=== PATIENT | male | born 1965 | race Caucasian/White ===

== ENCOUNTER 2020-04-05 08:04 | Outpatient (CLI) | payer BC, SELFPAY ==
[2020-04-05 09:31] LABS: Basophils Percent Auto 0.5 % (0.2-1.2); Eosinophils Absolute Auto 0.1 K/mm3 (0-0.3); Eosinophils Percent Auto 2.3 % (0-4.4); Hematocrit 42.9 % (42.0-52.0); Hemoglobin 14.6 g/dL (14.0-18.0); Immature Granulocyte Absolute 0.02 K/mm3 (0.00-0.031); Immature Granulocyte Percent A 0.3 % (0-0.5); Lymphocytes Absolute Auto 1.93 K/mm3 (0.9-3.2); Lymphocytes Percent Auto 31.4 % (18.3-44.2); Mean Corpuscular Volume 91.1 fl (80-100); Mean Platelet Volume 8.8 fl (7.4-10.4); Monocytes Absolute Auto 0.5 K/mm3 (0.1-0.6); Monocytes Percent Auto 8.8 % (2.6-8.5); Neutrophils Absolute Auto 3.5 K/mm3 (1.3-6.7); Neutrophils Percent Auto 56.7 % (45.5-73.1); Platelet Count Result 235 k/mm3 (150-375); Red Blood Count 4.71 M/mm3 (4.6-6.20); White Blood Count 6.1 K/mm3 (4.5-10.0)
[2020-04-05 09:58] LABS: Albumin Level 4.7 g/dL (3.5-5.1); Estimated Glomerular Filt Rate > 60; Glucose 102 mg/dL (75-110)
[2020-04-05 10:01] LABS: Hemoglobin A1C 5.4 % (<5.7)
[2020-04-05 10:33] LABS: Urine Cotinine NEGATIVE
== END 2020-04-05 08:05 | disposition home or self-care (01) ==
LOC: ANHSURGERY 08:08
PROVIDERS: PCP Internal Medicine Geriatric Medicine; Visit Provider Orthopaedic Surgery
DX: M17.11 Unilateral primary osteoarthritis, right knee (principal); Z51.81 Encounter for therapeutic drug level monitoring; Z79.899 Other long term (current) drug therapy
CPT/HCPCS: 80307; 82040; 82565; 82947; 83036; 85025; 87081

== ENCOUNTER 2020-04-22 00:33 | Outpatient (CLI) | payer BC, SELFPAY ==
[2020-04-22 19:13] LABS: SARS-CoV-2 RNA PCR Negative
== END 2020-04-22 00:34 | disposition home or self-care (01) ==
LOC: ANHCOVIDDT 00:33
PROVIDERS: PCP Internal Medicine Geriatric Medicine; Visit Provider Orthopaedic Surgery
DX: Z01.812 Encounter for preprocedural laboratory examination (principal); Z20.828 Contact with and (suspected) exposure to other viral communicable diseases
CPT/HCPCS: 87635; C9803; U0003

== ENCOUNTER 2020-04-25 01:00 | Day surgery (SDC) | payer BC, SELFPAY ==
[2020-04-05 08:14] VITALS: BMI 36.6
[2020-04-05 09:18] VITALS: BP 169/94; PULSE 61; RESP 16; TEMP 37.1; O2SAT 99
--- NOTE | 2020-04-24 12:16 | WPDANESEPPF ---
Anes - Initial Pre Proc Eval Procedure: Operation Date: 04/25/20 07:30 Proposed Procedures p Right Total Knee Arthroplasty - Dane May MD Date/Time: 04/24/20 12:16 Surgeon: Dane May MD Pre Op Diagnosis: OA Right Knee Patient Data Age: 55 Gender: M Height: 1.91 m Weight: 132.8 kg Last Vital Signs Temp 37.1 C 04/05/20 09:18 Pulse 61 04/05/20 09:18 Resp 16 04/05/20 09:18 BP 169/94 H 04/05/20 09:18 Pulse Ox 99 04/05/20 09:18 Allergies Allergy/AdvReac Type Severity Reaction Status Date / Time No Known Allergies Allergy Verified 04/25/20 06:24 Home Medications Medication Instructions Recorded Confirmed Type oxycodone-acetaminophen 5 mg-325 1 - 2 tablet PO Q6H PRN #30 tablet 04/03/20 04/05/20 Rx mg tablet rosuvastatin 20 mg tablet 20 mg PO DAILY 04/03/20 04/05/20 History cholecalciferol (vitamin D3) 25 mcg PO DAILY 04/05/20 04/05/20 History flaxseed oil 1,000 mg PO DAILY 04/05/20 04/05/20 History glucosamine-chondroitin 2 cap PO DAILY 04/05/20 04/05/20 History lisinopril 20 mg PO QAM 04/05/20 04/05/20 History meloxicam 15 mg PO DAILY 04/05/20 04/05/20 History vitamin B complex 1 tablet PO DAILY 04/05/20 04/05/20 History vitamin E 400 unit PO DAILY 04/05/20 04/05/20 History Patient hx anesthesia problems: none Family hx anesthesia problems: none PMFSH Past Medical History Medical History (Updated 04/24/20 @ 12:17 by Wander Martinez MD) Anxiety Gout HTN (hypertension) Hypercholesterolemia Osteoarthritis Family History Family History Father Diabetes mellitus Hypertension Other Family history of dementia Family history of malignant neoplasm of male breast Social History Social History Smoking packs per day: 1.5 Smoking cigarettes per day: 30.0 Years smoked: 20 Smoking pack-years: 30.00 Smoking status: Former smoker Tobacco type: cigarettes Second hand tobacco smoke exposure: No Smoking end date: 05/19/09 Additional smoking assessment comments: DENIES ANY FORM OF TOBACCO/NICOTINE USE Alcohol intake: current Drinks per week: 18 Living arrangements: with family Spiritual care concerns: No Anes - Eval Final PreProcedure Day of Procedure 04/24/20 12:16 Patient weight: obese Heart: regular rate and rhythm Lungs: clear to auscultation and normal air movement Airway: Mallampati scale class II Neurological: alert and oriented Last oral intake: >/= 8 hours ASA classification: III Emergent: no Anesthetic plan: proceed Anesthesia type and monitoring: general LMA Informed Consent: The patient's anesthetic plan and its attendant risks and benefits were discussed with the patient/family/POA. Questions were solicited and answers provided to the satisfaction of the patient/family/POA.
[2020-04-25] VITALS (12 sets, daily range): BP systolic 140–177; BP diastolic 75–95; PULSE 71–88; RESP 11–18; TEMP 36.4; O2SAT 94–100
--- NOTE | ~2020-04-25 | XR_ITS ---
EXAMINATION: XR knee RT 2V DATE: 04/25/2020 10:23 INDICATION: Total right knee arthroplasty. Postop. TECHNIQUE: 2 views of right knee were obtained. COMPARISON: Right knee radiographs 11/25/2019 FINDINGS: There is a total right knee arthroplasty with patellar resurfacing in near-anatomic alignme nt. No fracture. There is gas in the knee joint and soft tissues, consistent with recent surgery. IMPRESSION: 1. Total right knee arthroplasty in near-anatomic alignment. Reviewed, dictated and finalized at location B. ET ENGINEER
[2020-04-25] MEDS: ACETAMINOPHEN 500 MG TABLET 1000 MG PO (06:17)
[2020-04-25] MEDS: LACTATED RINGERS 1,000 ML 30 ML IV CONT ×2 (06:36→10:03)
[2020-04-25] MEDS: TRANEXAMIC ACID 1,000MG/ISO100 1,000 MG/100 ML BAG 200 MG IVPB (07:02)
--- NOTE | 2020-04-25 07:20 | WPDHPUPDATE1 ---
History and Physical Update Update Date/Time: 04/25/20 07:20 History and Physical has been reviewed, including an updated exam of the patient. There are NO changes in the patient's condition. Risks, benefits, and alternatives have been discussed and questions answered. Patient agrees to proceed with procedure.
[2020-04-25] MEDS: ceFAZolin 3 GM/D5W 100 ML 100 ML IVPB (07:24)
--- NOTE | 2020-04-25 07:26 | WPDANESPNB ---
Anes - Peripheral Nerve Block Date/Time: 04/25/20 07:26 I have discussed with the patient/family/POA the placement of a peripheral nerve block for post-operative pain management, including associated risks, benefits, complications, and side effects. Alternative methods of post-operative analgesia were detailed. Questions were solicited and answers provided to the satisfaction of the patient/family/POA. Time-Out: A pre-procedural Time-Out was completed immediately before starting the procedure and confirmed: Patient Identification, Site, Procedure, Patient Position and the Availability of Requisite Equipment. Clinical Indications: Acute post-operative pain management requested by the operative surgeon. Nerve Block Insertion Note Anes-nerve block: adductor canal right Patient position: supine Skin prep: chlorhexidine Needle: 22 gauge, stimulating, insulated echogenic needle. Needle length: 80 mm Technique: ultrasound Technique comment: in plane Injectate: bupivacaine 0.25% with epi 5 mcg/ml (30cc) Observations: tolerated well Complications: none Procedure start time:: 720 Procedure end time:: 725
[2020-04-25] MEDS: GENTAMICIN BONE CEMENT REFOBACIN 1 EACH TOPICAL (07:57)
[2020-04-25] MEDS: fentaNYL CITRATE INJ (*CRX) 100 MCG/2 ML VIAL 25 MCG IV PUSH ×4 (10:34→11:00)
--- NOTE | 2020-04-25 11:34 | PM.PROC ---
Procedure Note - Detailed Date of procedure: 04/25/20 Pre-op diagnosis: OA Right Knee Post-op diagnosis: same Procedure performed: Total knee arthroplasty, right Description of procedure: Severe persistent pain despite ongoing since conservative care. He had a large varus thrust with attenuation of the lateral ligament complex. Posterior stabilized component was selected. A very large medial release was required. 8? distal femoral resection. Femur at 3? external rotation matched the AP axis. 0-3? posterior slope. Flexion gap medially and laterally as well as the medial extension gap were ideally balanced with a 13 mm polyethylene. The lateral extension gap had acceptable laxity at 15-45 degrees, but closed nicely at full extension. Implants: Chastity Triathlon size 7 press-fit femur, size 7 cemented low-profile tibia, 13 mm posterior stabilized polyethylene insert, 40mm asymmetric metal backed patellar component. Anesthesia: GETA and regional (subsartorial nerve block) Surgeon: Dane May MD Internal Communications Writer: Naty Mathew PA-C Estimated blood loss (mL): 200 Tourniquet time (min): 80 Drains: No Pathology: none sent Complications: None Condition: stable Disposition: same day Findings: Physician roofer assistant required for surgery; including patient positioning, draping, tissue retraction, limb positioning, maintaining instrument position, cement removal, wound closure, and dressing placement. OPERATIVE DETAILS: The patient was given a nerve block preoperatively, and then brought to the operating room. A general anesthetic was administered. The leg was prepped and draped in the usual sterile fashion. The limb was elevated and the tourniquet inflated to 300 mmHg. A longitudinal incision was created along the medial border of the patella and patellar tendon, and a minimally invasive optimized mid-vastus approach to the knee was performed. A very large medial release was taken. The knee was then flexed. The osteophytes were carefully removed. The intramedullary guide was placed in the femoral canal. The distal femoral resection was then taken with the oscillating saw. The collateral ligaments were carefully protected. The tibia was carefully exposed. The jig was applied, and the proximal tibia was resected according to preoperative plan. The knee was balanced in extension. Appropriate releases were taken where needed. The anterior cruciate ligament and meniscal remnants were removed. The posterior cruciate ligament was preserved. The patella was measured. Patellar resection was carried out with the oscillating saw. The lug holes drilled. The femur was sized and rotation assessed using a combination of gap balancing, posterior referencing, and the AP axis. The 4 in 1 cutting block was used to finish the femoral cuts after equal gaps were assured. The lug holes were drilled. The osteophytes were carefully removed from the back of the knee. The knee was copiously irrigated with antibiotic solution periodically throughout the procedure. The meniscal remnants were removed. The spacer block was used to confirm equal flexion and extension gaps. The tibia was sized and broached. The bony surfaces were prepared for cementing with pulsatile lavage. The real tibial component was cemented into position followed by press fitting the femoral component. Excess cement was carefully removed. The patella component was press-fit. Patellar tracking was carefully assessed. The medial side remains slightly tight. Five insertions of the 18 gauge needle allowed another mm of medial laxity. The medial joint gap was 1-2 mm. The wound was closed with #1 Vycril suture, #2 Quill suture, 0-Quill suture, and 2-0 Quill suture followed by Steri-Strips. A sterile bulky dressing was applied. Meticulous hemostasis was maintained throughout the procedure. There were no complications. The patient was extubated and brought to the recovery room in stable condition after the application of taniya
[2020-04-25] MEDS: oxyCODONE HCL (*CRX) 5 MG TAB IR PO (12:03)
--- NOTE | 2020-04-25 14:59 | SUR.PHASEII ---
PATIENT HAD PT COME BY AND WORK WITH HIM AND SIGNED OFF. PT ATTE A TRAY OF FOOD AND HAD NO NAUSEA. ANESTCHRISTINA FAULKNER CAME BACK BY AND SAW PT AND SIGNED OFF.
== END 2020-04-25 13:00 | disposition home or self-care (01) ==
PROVIDERS: PCP Internal Medicine Geriatric Medicine; Visit Provider Orthopaedic Surgery
PROC: (CPT 27447; principal; 2020-04-25 07:30)
DX: M17.11 Unilateral primary osteoarthritis, right knee (principal); G89.18 Other acute postprocedural pain; I10 Essential (primary) hypertension; E78.00 Pure hypercholesterolemia, unspecified; M10.9 Gout, unspecified; F41.9 Anxiety disorder, unspecified; Z87.891 Personal history of nicotine dependence; E66.9 Obesity, unspecified; Z68.36 Body mass index [BMI] 36.0-36.9, adult
CPT/HCPCS: 27447; 64447; 36415; 73560; 86850; 86900; 86901; 97110; 97161; A9270; C1713; C1776; J0171; J0690; J1100; J1170; J1200; J1885; J2250; J2270; J2405; J2704; J2795; J3010; J7120

== ENCOUNTER 2020-06-21 12:30 | Outpatient (RCR) | payer BC, SELFPAY ==
--- NOTE | 2020-04-19 14:15 | PTOPEVAL ---
Thank you for referring Hitesh Bejarano Benitaezekeil to [facility].?Pre-op physical therapy visit completed with training and handouts provided. Additional therapy to be scheduled post-op. Please review, sign, date and return this plan of care LIZ. I agree with and certify that the following plan of care is medically necessary. Referring Physician Date Attending Provider: Dane May MD Referring Provider: *PT Outpatient Evaluation Start: 04/19/20 13:19 Freq: Status: Active Protocol: Document 04/19/20 13:19 CAP (Rec: 04/19/20 14:01 CAP [id number]) Therapy Assessment Status Assessment Status Assessment Status Evaluation Outpatient Past Medical History Neurological History Hx Neurological Disorders No Significant History Cardiovascular History Hx Hypercholesterolemia Yes Hx Hypertension Yes Hx Other Cardiac Disorders Yes: ELLIPTICAL AND BOWFLEX MACHINE 3-4 X WK Respiratory History Hx Respiratory Disorders No Significant History Gastrointestinal History Hx Gastrointestinal Disorders No Significant History Genitourinary History Hx Genitourinary Disorders No Significant History Musculoskeletal History Hx Arthritis Yes: GENERALIZED Hx Crutches or Walker Use Yes: CRUTCHES 1979 Query Text:If Yes, Enter Crutches, Walker, or Both in the Comment Hx Fractures Yes: LT ANKLE,LT HAND, NOSE Hx Orthopedic Surgery Yes: RT KNEE SCOPE Hx Other Musculoskeletal Disorders Yes: OA RT KNEE Hematological History Hx Hematological Disorders No Significant History Endocrine History Hx Endocrine Disorders No Significant History HEENT History Hx Other HEENT Disorders Yes: GLASSES. WISDOM TEETH EXTRACTED. LT EYE FLUTTERS OCC Integumentary History Hx Skin Disorders No Significant History Reproductive History Hx Reproductive Disorders No Significant History Psychosocial History Hx Psychiatric Disorders No Significant History Pain History History of Any Previous or Ongoing No Significant History Instance of Pain Anesthesia History Hx Anesthesia Reactions No Significant History Evaluation Information Problem Diagnosis right knee OA Onset years Additional Evaluation Detail TKR planned for 04/25/20. Subjective Information He reports limitations with LE Query Text:As Reported By Patient/ flexibility, knee range, Family negotiating steps, prolonged sitting, and community walking . Prior Level of Function Home Setting Home Type House Environmental Barriers Railing, None,Stairs, 2-4, Stairs, Threshold Livin
--- NOTE | 2020-05-02 14:32 | PTOPEVAL ---
Thank you for referring Hitesh Mora to [facility] [place].? The patient is scheduled to be seen for therapy? 2-3 x/week for 6-8 weeks. Please review, sign, date and return this plan of care LIZ. I agree with and certify that the following plan of care is medically necessary. Referring Physician Date Attending Provider: Dane May MD *PT Outpatient Evaluation Start: 04/19/20 13:19 Freq: Status: Active Protocol: Document 05/02/20 13:25 CAP (Rec: 05/02/20 14:10 CAP [id number]) Therapy Assessment Status Assessment Status Assessment Status Post-op Evaluation Outpatient Past Medical History Neurological History Hx Neurological Disorders No Significant History Cardiovascular History Hx Hypercholesterolemia Yes Hx Hypertension Yes Hx Other Cardiac Disorders Yes: ELLIPTICAL AND BOWFLEX MACHINE 3-4 X WK Respiratory History Hx Respiratory Disorders No Significant History Gastrointestinal History Hx Gastrointestinal Disorders No Significant History Genitourinary History Hx Genitourinary Disorders No Significant History Musculoskeletal History Hx Arthritis Yes: GENERALIZED Hx Crutches or Walker Use Yes: CRUTCHES 1979 Query Text:If Yes, Enter Crutches, Walker, or Both in the Comment Hx Fractures Yes: LT ANKLE,LT HAND, NOSE Hx Orthopedic Surgery Yes: RT KNEE SCOPE Hx Other Musculoskeletal Disorders Yes: OA RT KNEE Hematological History Hx Hematological Disorders No Significant History Endocrine History Hx Endocrine Disorders No Significant History HEENT History Hx Other HEENT Disorders Yes: GLASSES. WISDOM TEETH EXTRACTED. LT EYE FLUTTERS OCC Integumentary History Hx Skin Disorders No Significant History Reproductive History Hx Reproductive Disorders No Significant History Psychosocial History Hx Psychiatric Disorders No Significant History Pain History History of Any Previous or Ongoing No Significant History Instance of Pain Anesthesia History Hx Anesthesia Reactions No Significant History Evaluation Information Problem Diagnosis right knee OA Onset years Additional Evaluation Detail TKR on 04/25/20. Subjective Information He reports he has weaned off Query Text:As Reported By Patient/ the perscription pain meds on Family Friday. He is limited with walking, standing, negotiating steps, ADL's, knee motion and ability to perform IADL's. He is limiting with squating and getting in/out of car. He
--- NOTE | 2020-05-29 16:09 | PTOPEVAL ---
Thank you for referring Hitesh Mora to [facility].? The patient is scheduled to be seen for therapy 2-3 x/week for 3 weeks. Please review, sign, date and return this plan of care LIZ. I agree with and certify that the following plan of care is medically necessary. Referring Physician Date Attending Provider: Dane May MD Referring Provider: *PT Outpatient Evaluation Start: 04/19/20 13:19 Freq: Status: Active Protocol: Document 05/29/20 12:30 CAP (Rec: 05/29/20 13:20 CAP [id number]) Therapy Assessment Status Assessment Status Assessment Status Re-evaluation Evaluation Information Problem Diagnosis right knee OA Onset years Additional Evaluation Detail TKR on 04/25/20. Subjective Information He worked this weekend with Query Text:As Reported By Patient/ incresaed stiffness due to Family prolonged time in the car. He works for the [employer] in [place]. States he was sore after last treatment. He reports prolonged position cont to increase his pain. He denies problems with walking. He reports occasional limitations with steps Pain Assessment Timing of Pain Assessment Timing of Pain Assessment Re-assessment Pain Scale Pain Scale Used Numeric (1 - 10) Self Report Pain Assessment Right Knee(s) Reported Pain Level 2 Pain Description Aching,Soreness Lowest Pain Intensity 0 Greatest Pain Intensity 4 Pain Aggravating Factors Exercise/Activity,Prolonged Position,Sitting,Stair Climbing Pain Behaviors None Pain Score Pain Score 2: Self Report Interventions Used Interventions Used By Clinicians Electrical Stimulation, Exercise,Ice Lower Extremity Range of Motion Knee Range of Motion Right Knee Flexion Range of Motion - Active 110 Knee Extension Range of Motion - Active -5 Query Text: Knee Range of Motion Limitations Edema,Soft Tissue Restriction Knee Range of Motion Comments left knee flex: 122 dg Lower Extremity Muscle Strength Testing Hip Strength Right Hip Flexion Strength 5 Normal Hip Extension Strength 4+ Good + Hip Abduction Strength 3+ Fair + Knee Strength Right Knee Flexion Strength 4+ Good + Knee Extension Strength 5 Normal Extremity Circumference Assessment Circumference Assessment Location
--- NOTE | 2020-06-12 11:41 | PCPTNOTE ---
Patient did not show up for scheduled appointment this date; called and left voicemail for next appointment 06/14/20 @ 12:30.
--- NOTE | 2020-06-21 15:26 | PTOPEVAL ---
Thank you for referring Hitesh Mora to [facility] [place]Note 2[facility]? Pt has been seen for 23 therapy visits to address impairments related to right TKR. He demonstrates normal LE strength and improved knee range. He remains limited with knee range due to continued swelling of the knee. He is indep with his HEP at this time. He has achieved most of his therapy goals. He has reached maximal potential with skilled therapy services at this Please review, sign, date and return this Discharge treatment plan. I agree with and certify that the following plan of care is medically necessary. Referring Physician Date Attending Provider: Dane May MD Discharge Note Diagnosis right knee OA Additional Evaluation Detail TKR on 04/25/20. Subjective Information He c/o tightness of the right Query Text:As Reported By Patient/ anterior knee region due to Family swelling. He is unable to associate the swelling with any particular activity. Denies limitations with walking, negotiating steps, ADL's and IADL's. He is performing HEP and bowflex eliptical daily without limitations. Pain Assessment Right Knee(s) Reported Pain Level 0 Pain Description Tightness Lower Extremity Range of Motion Right Knee Flexion Range of Motion - Active 118 Knee Extension Range of Motion - Active -4 Query Text: Knee Range of Motion Limitations Edema Lower Extremity Muscle Strength Testing Gross Lower Extremity Strength left LE 5/5 except hip abd 4-/5 Hip Strength Right Hip Flexion Strength 5 Normal Hip Extension Strength 5 Normal Hip Abduction Strength 4- Good - Knee Strength Right Knee Flexion Strength 5 Normal Knee Extension Strength 5 Normal Palpation Assessment Palpation Palpation mild tenderness of lateral knee joint region Special Tests-Lower Extremity Hip Special Tests Trendelenburg Sign Negative Left,Positive Right Hip Special Test Comments SLS: right 17 sec, left: 30 sec Extremity Circumference Assessment Circumference Assessment Location Right Body Part Knee Site Descriptor ([place]) lateral knee joint line Circumference (cm) 47 Noninvolved Side Circumference (cm) 43 Circumference Comments tibial tuberosity:right 42 cm, left 40 cm Gait Assessment Gait Pattern Assessment Gait Pattern Antalgic Gait Gait Pattern Observed Trunk Flexed 2 Minute Walk Total Distance Walked (feet) 673 2 Minute Walk Gait Speed Score (feet/ 5.60 second)
== END 2020-06-22 12:41 | disposition home or self-care (01) ==
LOC: ANHPT 12:30
PROVIDERS: PCP Internal Medicine Geriatric Medicine; Visit Provider Orthopaedic Surgery
DX: M17.11 Unilateral primary osteoarthritis, right knee (principal)
CPT/HCPCS: 97014; 97110; 97112; 97116; 97140; 97161; 97162; 97530; G0283